=== PATIENT | male | born 1990 | race Asian ===

== ENCOUNTER 2019-10-28 20:09 | Emergency (ER) | payer OTHER ==
[2019-10-28 20:58] LABS: ABS Eosinophils 0.1 10^3/ul (0-0.6); ABS Lymphocytes 0.3 10^3/ul (1.0-4.8); ABS Monocytes 0.2 10^3/ul (0-0.8); ABS Neutrophils 5.5 10^3/ul (1.5-7.7); Eosinophil % 0.8 %; Hematocrit 50 % (42-52); Hemoglobin 17.4 g/dL (14.0-18.0); Lymphocyte % 5.4 %; Mean Corpuscular HGB Conc 35 g/dL (31-36); Mean Corpuscular Hemoglobin 30 pg (27-31); Mean Corpuscular Volume 86 fL (80-94); Mean Platelet Volume 8.5 fL (7.4-10.4); Platelet Count 168 10^3/uL (150-450); Red Blood Count 5.83 10^6 /uL (4.18-5.48); Red Cell Distribution Width 12 % (10-15); White Blood Count 6.1 10^3/uL (3.5-10.8)
[2019-10-28 21:18] LABS: Albumin 4.9 g/dL (3.2-5.2); BUN/Creatinine Ratio 16.3 (8-20); Calcium 9.8 mg/dL (8.6-10.3); EGFR African American 118.5 (>60); Globulin 2.5 g/dL (2-4); Potassium 3.7 mmol/L (3.5-5.0); Total Bilirubin 0.6 mg/dL (0.2-1.0); Total Protein 7.4 g/dL (6.4-8.9)
[2019-10-29] MEDS ORDERED: NS 0.9% 1000 ML** 2,000 ML IV ONE (00:31)
[2019-10-29] MEDS ORDERED: Ibuprofen TAB* 600 MG PO ONE (01:11)
[2019-10-29] MEDS ORDERED: Ondansetron INJ* 2 MG/ML VIAL IV ONE (01:11)
[2019-10-29] MEDS ORDERED: NS 0.9% 1000 ML** 1,000 ML IV ONE (01:14)
[2019-10-29 01:46] LABS: Influenza A Molecular NEGATIVE (Negative); Influenza B Molecular NEGATIVE (Negative)
--- NOTE | 2019-10-29 01:46 | ED ---
Influenza-Like Illness - HPI Summary HPI Summary: Patient complains of lightheadedness, palpitations, body aches, shivering, nausea starting at 5:30 PM today. Patient states history of hyperkalemia with similar symptoms. Denies fever, cough, sore throat, FRAZIER, CP, SOB, V/D, abdominal pain, change in urine, change in BM. Medical history is none. - History of Current Complaint Chief Complaint: EDGeneral Time Seen by Provider: 10/29/19 00:30 Hx Obtained From: Patient Onset/Duration: Sudden Onset, Lasting Hours Severity: Moderate Associated Signs & Symptoms: Myalgia - Allergy/Home Medications Allergies/Adverse Reactions: Allergies Allergy/AdvReac Type Severity Reaction Status Date / Time No Known Allergies Allergy Verified 10/09/18 21:08 PMH/Surg Hx/FS Hx/Imm Hx Endocrine/Hematology History: Denies: Hx Anticoagulant Therapy Cardiovascular History: Denies: Hx Pacemaker/ICD History: Denies: Hx Dialysis Sensory History: Denies: Hx Legally Blind, Hx Deafness Opthamlomology History: Denies: Hx Legally Blind EENT History: Denies: Hx Deafness Neurological History: Denies: Hx Dementia Infectious Disease History: No Infectious Disease History: Denies: Traveled Outside the [place] in Last 30 Days - Family History Known Family History: Negative: Blood Disorder - Social History Alcohol Use: Weekly Substance Use Type: Reports: None Smoking Status (MU): Never Smoked Tobacco Review of Systems Positive: Chills Eyes: Negative ENT: Negative Positive: Palpitations Respiratory: Negative Positive: Nausea Genitourinary: Negative Positive: Myalgia Skin: Negative Neurological: Negative Psychological: Normal All Other Systems Reviewed And Are Negative: Yes Physical Exam Triage Information Reviewed: Yes Vital Signs On Initial Exam: Initial Vitals Temp Pulse Resp BP Pulse Ox 99 F 109 18 150/92 98 10/28/19 20:12 10/28/19 20:12 10/28/19 20:12 10/28/19 20:12 10/28/19 20:12 Vital Signs Reviewed: Yes Appearance: Positive: Well-Appearing Skin: Positive: Warm Head/Face: Positive: Normal Head/Face Inspection Eyes: Positive: Normal ENT: Positive: Normal ENT inspection Neck: Positive: Supple Respiratory/Lung Sounds: Positive: Clear to Auscultation Cardiovascular: Positive: Normal Abdomen Description: Positive: Nontender Musculoskeletal: Positive: Normal Neurological: Positive: Normal Psychiatric: Positive: Normal AVPU Assessment: Alert - [place] Coma Scale Best Eye Response: 4 - Spontaneous Best Motor Response: 6 - Obeys Commands Best Verbal Response: 5 - Oriented Coma Scale Total: 15 Procedures - Sedation Patient Received Moderate/Deep Sedation with Procedure: No Diagnostics - Vital Signs Vital Signs Temp Pulse Resp BP Pulse Ox 10/29/19 01:44 103.2 F 10/29/19 00:32 138/81 10/28/19 22:56 101.3 F 113 20 152/90 98 10/28/19 20:12 99 F 109 18 150/92 98 - Laboratory Lab Results: Lab Results 10/28/19 10/28/19 10/28/19 Range/Units 20:51 20:51 20:51 WBC 6.1 (3.5-10.8) 10^3/uL RBC 5.83 H (4.18-5.48) 10^6 /uL Hgb 17.4 (14.0-18.0) g/dL Hct 50 (42-52) % MCV 86 (80-94) fL MCH 30 (27-31) pg MCHC 35 (31-36) g/dL RDW 12 (10-15) % Plt Count 168 (150-450) 10^3/uL MPV 8.5 (7.4-10.4) fL Neut % (Auto) 89.7 % Lymph % (Auto) 5.4 % [place] % (Auto) 4.0 % Eos % (Auto) 0.8 % Baso % (Auto) 0.1 % Absolute Neuts (auto) 5.5 (1.5-7.7) 10^3/ul Absolute Lymphs (auto) 0.3 L (1.0-4.8) 10^3/ul Absolute Monos (auto) 0.2 (0-0.8) 10^3/ul Absolute Eos (auto) 0.1 (0-0.6) 10^3/ul Absolute Basos (auto) 0.0 (0-0.2) 10^3/ul Absolute Nucleated RBC 0.0 10^3/ul Nucleated RBC % 0.0 Sodium 139 (135-145) mmol/L Potassium 3.7 (3.5-5.0) mmol/L Chloride 102 (101-111) mmol/L Carbon Dioxide 30 (22-32) mmol/L Anion Gap 7 (2-11) mmol/L BUN 15 (6-24) mg/dL Creatinine 0.92 (0.67-1.17) mg/dL Est GFR ( Amer) 118.5 (>60) Est GFR (Non-Af Amer) 98.0 (>60) BUN/Creatinine Ratio 16.3 (8-20) Glucose 101 H (70-100) mg/dL Lactic Acid 2.4 H* (0.5-2.0) mmol/L Calcium 9.8 (8.6-10.3) mg/dL Magnesium 2.0 (1.9-2.7) mg/dL Total Bilirubin 0.60 (0.2-1.0) mg/dL AST 18 (13-39) U/L ALT 21 (7-52) U/L Alkaline Phosphatase 33 L (34-104) U/L Troponin I 0.00 (<0.03) ng/mL Total Protein 7.4 (6.4-8.9) g/dL Albumin 4.9 (3.2-5.2) g/dL Globulin 2.5 (2-4) g/dL Albumin/Globulin Ratio 2.0 (1-3) Influenza A (Rapid) Influenza B (Rapid) 10/29/19 Range/Units 01:25 WBC (3.5-10.8) 10^3/uL RBC (4.18-5.48) 10^6 /uL Hgb (14.0-18.0) g/dL Hct (42-52) % MCV (80-94) fL MCH (27-31) pg MCHC (31-36) g/dL RDW (10-15) % Plt Count (150-450) 10^3/uL MPV (7.4-10.4) fL Neut % (Auto) % Lymph % (Auto) % [place] % (Auto) % Eos % (Auto) % Baso % (Auto) % Absolute Neuts (auto) (1.5-7.7) 10^3/ul Absolute Lymphs (auto) (1.0-4.8) 10^3/ul Absolute Monos (auto) (0-0.8) 10^3/ul Absolute Eos (auto) (0-0.6) 10^3/ul Absolute Basos (auto) (0-0.2) 10^3/ul Absolute Nucleated RBC 10^3/ul Nucleated RBC % Sodium (135-145) mmol/L Potassium (3.5-5.0) mmol/L Chloride (101-111) mmol/L Carbon Dioxide (22-32) mmol/L Anion Gap (2-11) mmol/L BUN (6-24) mg/dL Creatinine (0.67-1.17) mg/dL Est GFR ( Amer) (>60) Est GFR (Non-Af Amer) (>60) BUN/Creatinine Ratio (8-20) Glucose (70-100) mg/dL Lactic Acid (0.5-2.0) mmol/L Calcium (8.6-10.3) mg/dL Magnesium (1.9-2.7) mg/dL Total Bilirubin (0.2-1.0) mg/dL AST (13-39) U/L ALT (7-52) U/L Alkaline Phosphatase (34-104) U/L Troponin I (<0.03) ng/mL Total Protein (6.4-8.9) g/dL Albumin (3.2-5.2) g/dL Globulin (2-4) g/dL Albumin/Globulin Ratio (1-3) Influenza A (Rapid) Pending Influenza B (Rapid) Pending Result Diagrams: 10/28/19 20:51 10/28/19 20:51 Lab Statement: Any lab studies that have been ordered have been reviewed, and results considered in the medical decision making process. Flu Symptom Course/Dx - Course Course Of Treatment: Patient complains of lightheadedness, palpitations, body aches, shivering, nausea starting at 5:30 PM today. Patient states history of hyperkalemia with similar symptoms. Denies fever, cough, sore throat, FRAZIER, CP, SOB, V/D, abdominal pain, change in urine, change in BM. Medical history is none. Temperature 103.2. Tachycardic heart rate of 113. Vital signs otherwise within normal limits. Fever resolved with antipyretic. Lactic 2.4. Labs otherwise unremarkable. 3 L normal saline. Flu negative. Diagnosis viral syndrome. - Diagnoses Provider Diagnoses: Viral syndrome Discharge ED - Sign-Out/Discharge Documenting (check all that apply): Patient Departure - Discharge Plan Condition: Stable Disposition: HOME Patient Education Materials: Viral Syndrome (ED) Forms: *School Release Referrals: No Primary Care Phys,NOPCP [Primary Care Provider] - Additional Instructions: Alternate ibuprofen 600 mg with Tylenol 650 mg every 3 hours for fever and body aches. Drink plenty of fluids to maintain hydration. Rest. Follow-up with primary care. - Billing Disposition and Condition Condition: STABLE Disposition: Home
[2019-10-29] MEDS ORDERED: Acetaminophen TAB* 325 MG PO ONE (01:59)
[2019-10-29 02:57] VITALS: BP 128/78
== END 2019-10-29 02:57 | disposition home or self-care (01) ==
LOC: ED 20:09
DX: B34.9 Viral infection, unspecified (principal)
CPT/HCPCS: 36415; 80053; 83605; 83735; 84484; 85025; 93005; 96361; 96374; 99283; A9270-GY; J2405